=== PATIENT | female | born 1975 | race Caucasian/White ===

== ENCOUNTER 2018-04-13 13:43 | Outpatient (CLI) | payer BC ==
[2018-04-13 14:16] LABS: HEMATOCRIT 45.7 % (37.0-47.0); HEMOGLOBIN 15.5 g/dl (12.5-16.0); MEAN CELL VOLUME 96 fl (80.0-100.0); MEAN CORPUSCULAR HEMOGLOBIN 33 pg (27.0-31.0); MEAN CORPUSCULAR HGB CONC 34 g/dl (33.0-37.0); MEAN PLATELET VOLUME 8.7 fl (7.4-10.4); PLATELET COUNT 355 K/mm3 (130-400); RED BLOOD COUNT 4.74 M/mm3 (4.10-5.30); REDCELL DISTRIBUTION WIDTH-CV 13.6 % (11.5-14.5)
[2018-04-13 14:18] VITALS: BP 119/73; PULSE 100
[2018-04-13 14:32] VITALS: BP 134/56; PULSE 72; TEMP 97.6
--- NOTE | 2018-04-13 14:59 | NUR ---
pT RESCHEDULED.dISCHARGE INSTRUCTIONS GIVEN TO PT.pT VERBALIZES UNDERSTANDING.INT REMOVED,CATHETER TIP INTACT.
--- NOTE | 2018-04-13 15:00 | NUR ---
T AGREES TO FOLLOW UP WITH PCR FOR COLD.
== END 2018-04-13 15:00 | disposition home or self-care (01) ==
LOC: EUO 13:43
PROVIDERS: Internal Medicine Gastroenterology
DX: Z79.899 Other long term (current) drug therapy (principal)
CPT/HCPCS: J3380

== ENCOUNTER 2018-05-05 15:00 | Outpatient (RCR) | payer BC ==
[2018-04-21 15:51] VITALS: BP 117/60; PULSE 81; TEMP 98.5
[~2018-05-05] VITALS: Ht 162.6 cm; Wt 74.0 kg
[2018-05-05 13:15] VITALS: BP 116/53; PULSE 96; TEMP 97.9
[2018-05-05 13:50] VITALS: BP 111/65; PULSE 88
[2018-05-05 14:10] VITALS: BP 111/53; PULSE 86
[~2018-05-05 15:00] MED LIST: HCTZ 25MG TAB25 MG PO; IMURAN 50MG TAB50 MG PO; PREDNISONE 5MG5 MG PO
--- NOTE | 2018-06-01 09:48 | NUR ---
per pt infusion is now arranged at [facility].pt requests to cancel apt.
== END 2018-06-01 09:50 | disposition home or self-care (01) ==
LOC: EUO 15:00
DX: K50.813 Crohn's disease of both small and large intestine with fistula (principal)
CPT/HCPCS: J2405; J3380; J7050

== ENCOUNTER → 2019-11-05 | Outpatient (CLI) | payer BC | LOC: COL.LAB 13:55 | DX: K50.813 Crohn's disease of both small and large intestine with fistula (principal); Z79.899 Other long term (current) drug therapy ==